=== PATIENT | male | born 1930 | race Caucasian/White ===

== ENCOUNTER → 2016-06-25 | Outpatient (CLI) | payer MEDICARE, BC ==
--- NOTE | 2016-06-25 09:21 | MRI ---
EXAM DESCRIPTION: Brain MRI. CLINICAL HISTORY: Acute onset of dizziness COMPARISON: None. TECHNIQUE: Multiplanar, multisequence MR images were acquired without IV contrast. FINDINGS: The midline structures demonstrate degenerative change about the dens. The remaining paranasal sinuses are clear. Chronic microvascular ischemic change with periventricular white matter disease noted. No intracranial mass effect, hydrocephalus, midline shift, hemorrhage, extra-axial fluid collection, abnormal vascular flow void, or restricted diffusion is seen. Calvarial signal is intact. Paranasal sinuses and the mastoid air cells appear clear. Orbits are within normal limits. IMPRESSION: Today's exam demonstrates cerebral involutional changes and moderate periventricular white matter disease. No acute stroke on today's exam. No old large territorial infarct. Electronically signed by: Devon Lanier MD 06/25/2016 09:19
--- NOTE | 2016-06-25 09:56 | US ---
EXAM DESCRIPTION: US CAROTID DOPPLER BILATERAL CLINICAL HISTORY: 86 y/o M, STENOSIS COMPARISON: None. FINDINGS: Peak systolic velocity right common carotid artery 100 centimeters/second. Peak systolic velocity right internal carotid artery 106 centimeters/second. Right ICA to CCA ratio 1.1. Antegrade flow in the right vertebral artery. Peak systolic velocity right external carotid artery 90 phi centimeters/second. Grayscale images show a small to moderate amount of predominately noncalcified plaque in the right carotid bifurcation. Peak systolic velocity left common carotid artery 122 centimeters/second. Peak systolic velocity left internal carotid artery 100 centimeters/second. Left ICA to CCA ratio 0.8. Antegrade flow in the left vertebral artery. Peak systolic velocity left external carotid artery 104 centimeters/second. Grayscale images show a small amount of plaque in the left carotid bifurcation. IMPRESSION: Mild (less than 50%) bilateral carotid artery stenosis. Electronically signed by: Arden Gambino DO 06/25/2016 09:54
== END ==
LOC: MRI 08:05
PROVIDERS: ATTEND Family Medicine
DX: R42 Dizziness and giddiness (principal); I65.21 Occlusion and stenosis of right carotid artery

== ENCOUNTER → 2016-09-08 | Outpatient (CLI) | payer MEDICARE, BC | END | disposition home or self-care (01) | LOC: GMAB 11:21 | PROVIDERS: ATTEND Family Medicine | DX: Z12.5 Encounter for screening for malignant neoplasm of prostate (principal); E03.9 Hypothyroidism, unspecified | CPT/HCPCS: 84439; 84443; 84481; G0103 ==

== ENCOUNTER 2016-11-16 21:46 | Emergency (ER) | payer MEDICARE, BC ==
[2016-11-16] MEDS ORDERED: LIDOCAINE 1% 10 ML VIAL INJ ONE (22:08)
[2016-11-16 23:08] VITALS: TEMP 98.2; O2SAT 99
--- NOTE | 2016-11-16 23:23 | ED.PDOC ---
History of Present Illness - General Chief Complaint: Laceration Stated Complaint: laceration Time Seen by Provider: 11/16/16 23:20 Source: patient Exam Limitations: no limitations - History of Present Illness Initial Comments: Patient presents with a laceration on his right fifth digit from a blade of [place] grass. He says it bled quite a bit. Now has it covered with a band aid. No other complaints. Last tetanus was 2-3 years ago. Timing/Duration: 1 hour Severity: mild Improving Factors: nothing Worsening Factors: nothing Associated Symptoms: denies symptoms Allergies/Adverse Reactions: Allergies NO KNOWN ALLERGY Allergy (Verified 10/14/13 16:34) Home Medications: Ambulatory Orders Aspirin [Aspirin EC Lo-Dose] 81 mg PO DAILY 10/19/13 B-Complex W/ C & Folic Acid [Folbee Plus] 1 tab PO BID 10/19/13 Tamsulosin [Flomax] 0.4 mg PO DAILY 10/19/13 Timolol Maleate (Ophth) [Timolol Maleate Ophthalmi] 0.25 % OP DAILY 10/19/13 Cialis 11/16/16 Review of Systems - Review of Systems Constitutional: States: no symptoms reported EENTM: States: no symptoms reported Respiratory: States: no symptoms reported Cardiology: States: no symptoms reported Gastrointestinal/Abdominal: States: no symptoms reported Genitourinary: States: no symptoms reported Musculoskeletal: States: no symptoms reported Skin: States: see HPI Neurological: States: no symptoms reported Endocrine: States: no symptoms reported Hematologic/Lymphatic: States: no symptoms reported Past Medical History (General) - Patient Medical History Hx Congestive Heart Failure: No Hx Hypertension: Yes Hx Diabetes: No - Vaccination History Hx Tetanus, Diphtheria Vaccination: Yes - 2016 Family Medical History - Family History Father Family History: Unknown Physical Exam - Physical Exam General Appearance: Alert Respiratory: lungs clear Cardiovascular/Chest: regular rate, rhythm Skin Exam: other - 2.5 cm transverse laceration on anterior surface of right 5th digit just proximal to the PIP joint. Small amount of bleeding. Progress - Progress Progress: 11/16/16 23:23 Laceration was irrigated and prepared in a sterile fashion. 4 cc of lidocaine without epinephrine was used to gain excellent local anesthesia. 3 interrupted sutures with 4-0 proline were used to approximate the wound edges. Dermabond used to support the repair. Area was clean, dry, and hemostatic. Patient tolerated procedure well. Departure - Departure Clinical Impression: Laceration Disposition: Discharge to Home or Self Care Condition: Good Departure Forms: ED Discharge - Pt. Copy, Patient Portal Self Enrollment Diet: resume usual diet Activity: increase activity as tolerated Referrals: Meliton Ambriz MD [Primary Care Provider] - 1-2 Weeks Home Medications: Ambulatory Orders Aspirin [Aspirin EC Lo-Dose] 81 mg PO DAILY 10/19/13 B-Complex W/ C & Folic Acid [Folbee Plus] 1 tab PO BID 10/19/13 Tamsulosin [Flomax] 0.4 mg PO DAILY 10/19/13 Timolol Maleate (Ophth) [Timolol Maleate Ophthalmi] 0.25 % OP DAILY 10/19/13 Cialis 11/16/16 Additional Instructions: Return for suture removal in 7-10 days.
[2016-11-16 23:39] VITALS: BP 138/72
== END 2016-11-16 23:38 | disposition home or self-care (01) ==
LOC: ER 21:46
DX: S61.216A Laceration without foreign body of right little finger without damage to nail, initial encounter (principal); I10 Essential (primary) hypertension; Z79.82 Long term (current) use of aspirin; Z79.899 Other long term (current) drug therapy; W45.8XXA Other foreign body or object entering through skin, initial encounter; Y92.9 Unspecified place or not applicable

== ENCOUNTER 2017-09-10 08:46 | Emergency (ER) | payer MEDICARE, BC ==
--- NOTE | 2017-09-10 09:18 | ED.PDOC ---
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 He says he has eating breakfast at the table and he passed out. His said that he vomited up some food at that time. She says he was unconsciousness for 2-4 minutes. He had one previous episodes over a year ago. He says he runs "low blood pressure " and that his heart rate is usually in the 60s. He denies any antihypertensives. He has an RX for Cialis but has not taken that in two months. Denies any numbness or weakness. No chest pain nor dyspnea. He denies any nausea or diaphoresis. He denies any cardiac history. No history of CVA. No light-headedness nor dizziness. No other complaints. Timing/Duration: 1 hour Severity: mild Improving Factors: nothing Worsening Factors: nothing Associated Symptoms: nausea/vomiting Allergies/Adverse Reactions: Allergies NO KNOWN ALLERGY Allergy (Verified 10/14/13 16:34) Home Medications: Ambulatory Orders Aspirin [Aspirin EC Lo-Dose] 81 mg PO DAILY 10/19/13 B-Complex W/ C & Folic Acid [Folbee Plus] 1 tab PO BID 10/19/13 Tamsulosin [Flomax] 0.4 mg PO DAILY 10/19/13 Timolol Maleate (Ophth) [Timolol Maleate Ophthalmi] 0.25 % OP DAILY 10/19/13 Glucosamine-Chondroitin [Osteo Bi-Flex Regular Str 250-200 mg] 1 tab PO DAILY Review of Systems - Review of Systems Constitutional: States: no symptoms reported EENTM: States: no symptoms reported Respiratory: States: no symptoms reported Cardiology: States: no symptoms reported Gastrointestinal/Abdominal: States: see HPI Genitourinary: States: no symptoms reported Musculoskeletal: States: no symptoms reported Skin: States: no symptoms reported Neurological: States: see HPI Endocrine: States: no symptoms reported Hematologic/Lymphatic: States: no symptoms reported Past Medical History (General) - Patient Medical History Hx Stroke: No Hx Congestive Heart Failure: No Hx Hypertension: Yes Hx Diabetes: No Surgical History: cholecystectomy - Vaccination History Hx Tetanus, Diphtheria Vaccination: Yes - 2016 Hx Influenza Vaccination: Yes Hx Pneumococcal Vaccination: Yes - Social History Hx Tobacco Use: Yes Family Medical History - Family History Father Family History: Unknown Physical Exam - Physical Exam General Appearance: Alert Eye Exam: bilateral normal Ears, Nose, Throat: normal ENT inspection Neck: non-tender, full range of motion, supple Respiratory: chest non-tender, lungs clear, normal breath sounds Cardiovascular/Chest: normal peripheral pulses, regular rate, rhythm, no edema Gastrointestinal/Abdominal: normal bowel sounds, non tender, soft Back Exam: normal inspection, no CVA tenderness Extremity: normal range of motion, non-tender, normal inspection 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 EKG read by me showed atrial fibrillation. The patient had a pulse/auscultation mismatch as well. I spoke with his primary physician, Dr. Tom Ambriz, as well as the tile grinder who was in town today, Dr. Lai, and both recommended transfer to [facility] for new onset atrial fibrillation. Departure - Departure Clinical Impression: Atrial fibrillation with slow ventricular response, Syncope Disposition: Transfer to Hospital Condition: Fair Departure Forms: ED Discharge - Pt. Copy, Patient Portal Self Enrollment Diet: other - NPO Activity: as per physical therapy Referrals: Meliton Ambriz MD [Primary Care Provider] - 1-2 Weeks Home Medications: Ambulatory Orders Aspirin [Aspirin EC Lo-Dose] 81 mg PO DAILY 10/19/13 B-Complex W/ C & Folic Acid [Folbee Plus] 1 tab PO BID 10/19/13 Tamsulosin [Flomax] 0.4 mg PO DAILY 10/19/13 Timolol Maleate (Ophth) [Timolol Maleate Ophthalmi] 0.25 % OP DAILY 10/19/13 Glucosamine-Chondroitin [Osteo Bi-Flex Regular Str 250-200 mg] 1 tab PO DAILY
[2017-09-10] MEDS ORDERED: SODIUM CHLORIDE 0.9% 1000ML 1,000 ML IVS ONE (09:59)
[2017-09-10 11:02] VITALS: O2SAT 96
[2017-09-10 12:25] VITALS: BP 128/73; TEMP 96.7
== END 2017-09-10 12:28 | disposition short-term general hospital (02) ==
LOC: ER 08:46
DX: I48.91 Unspecified atrial fibrillation (principal); R55 Syncope and collapse; I10 Essential (primary) hypertension; Z79.82 Long term (current) use of aspirin; Z87.891 Personal history of nicotine dependence
CPT/HCPCS: 36415; 80053; 83880; 84484; 85025; 85610; 85730; 93005; J7030

== ENCOUNTER → 2017-09-27 | Outpatient (CLI) | payer MEDICARE, BC ==
--- NOTE | 2017-09-27 16:46 | CT ---
EXAM DESCRIPTION: Chest w/o Contrast CLINICAL HISTORY: 87 years, Male, ABNORMAL FINDINGS OF LUNG FIELD COMPARISON: None TECHNIQUE: Thin-section noncontrast axial CT images are obtained according to our protocol. Reconstructed MPR images are created and reviewed as well. FINDINGS: Today's examination demonstrates findings of advanced centrilobular emphysema with upper lobe changes much more prominent than lower lobe. There is a spiculated area of parenchymal consolidation in the central portion of the right apex and the region of multiple blebs and bullae. This measures about 13 mm in size. Subpleural nodule posterior right lower lobe medially measures 9 mm in size. No effusion. No definitively pathologic lymphadenopathy. Heart size normal. Upper abdomen unremarkable. IMPRESSION: 1. Advanced centrilobular emphysema 2. 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 The location of this lesion surrounded by bullous changes makes it somewhat hazardous to perform percutaneous biopsy. The patient will almost certainly developmental pneumothorax. It may be useful to perform PET/CT and a further attempt to classify this as it may well be benign. 3. 9 mm nodule left lung base. 2017 Fleischner Society Recommendations for Multiple Solid Lung Nodules Follow-Up base on size (average of long- and short-axis diameters). Use most suspicious nodule for followup. Nodule Size <6 mm Low-Risk Patient: No routine follow-up Nodule Size <6 mm High-Risk Patient: Optional CT at 12 months Nodule Size 6-8 mm Low-Risk Patient: CT at 3-[address] at 18-24 months Nodule Size 6-8 mm High-Risk Patient: CT at 3-6 months then at 18-24 months Nodule Size (mm) >8 Low-Risk Patient: CT at 3-6 months, then consider CT at 18-24 months Nodule Size (mm) >8 High-Risk Patient: CT at 3-6 months, then at 18-24 months 1. This exam was performed according to our departmental dose-optimization program, which includes automated exposure control, adjustment of the mA and/or kV according to patient size and/or use of iterative reconstruction technique. Electronically signed by: Antonio Hassan MD 09/27/2017 4:45 PM CDT
== END ==
LOC: CT 11:00
PROVIDERS: ATTEND Family Medicine
DX: R91.8 Other nonspecific abnormal finding of lung field (principal); J43.9 Emphysema, unspecified; R91.1 Solitary pulmonary nodule

== ENCOUNTER → 2017-12-02 | Outpatient (CLI) | payer MEDICARE, BC ==
--- NOTE | 2017-12-02 11:04 | CT ---
EXAM DESCRIPTION: Abdomen/Pelvis w/wo Contrast CLINICAL HISTORY: 87 years Male, KIDNEY MASS COMPARISON: CT chest September 27, 2017. TECHNIQUE: Contiguous 3 mm axial images were obtained from the lung bases to the level of the proximal femora with and without the administration of intravenous contrast. Sagittal and coronal reconstructions were reviewed. Precontrast, arterial and delayed imaging was obtained. FINDINGS: EVALUATION OF THE URINARY SYSTEM: Both kidneys enhance and excrete symmetrically with no evidence of nephrolithiasis, hydronephrosis, hydroureter are perinephric stranding. Right kidney: A 2.7 cm exophytic low-density lesion in the interpolar region of right kidney is seen along the posterior aspect which measures 30 HU on precontrast, 37 HU on arterial and 37 HU on portal venous imaging. Given no significant contrast uptake or washout, this most consistent with a complicated cyst. Left kidney: A 8 mm low-density exophytic lesion in the lower pole of left kidney along the anterior aspect which measures -2 HU on precontrast, 10 Hu on arterial and 10 HU on delayed imaging most consistent with a simple cyst. No other suspicious masses identified THORAX: Visualized lower thorax again demonstrates moderate emphysematous changes of both lower lobes. Interval development of a 5 mm noncalcified based nodule in the left lower lobe, is too small to characterize. No pleural or pericardial effusion. LIVER: The liver appears grossly unremarkable with no intrahepatic biliary ductal dilatation or focal masses. GALLBLADDER: Surgically absent. PANCREAS: Appears normal with no cystic or solid lesions. SPLEEN: Normal ADRENAL GLANDS: The right adrenal gland appears grossly unremarkable. Mild thickening of the lateral limb of the left adrenal gland seen. STOMACH: The stomach is moderately distended with no gross abnormality. SMALL BOWEL: The small bowel loops demonstrate variable degrees of distention with no abnormal dilatation or other signs to suggest bowel obstruction. LARGE BOWEL: The colon is adequately distended with no gross abnormality. The appendix is well-visualized and appears normal. Scattered diverticula are noted throughout the colon with no evidence of diverticulitis. No evidence of free intraperitoneal air or fluid. RETROPERITONEUM: The abdominal aorta is nonaneurysmal with moderate atherosclerotic calcifications. The inferior vena cava is normal in size and caliber. No abnormally enlarged retroperitoneal lymph nodes are identified. URINARY BLADDER:The urinary bladder is adequately distended and demonstrates diffuse circumferential wall thickness. The prostate is moderately enlarged with central calcification. ADDITIONAL FINDINGS: None. BONES: Review of the bones demonstrate dextroscoliosis of the lumbar spine with severe multilevel degenerative changes, more predominant at L3-L4 and L4-L5 levels with intervertebral disc space narrowing and vacuum disc phenomenon. IMPRESSION: 1. No acute intra-abdominal process. 2. 2.7 cm hyperdense cyst in the interpolar region of right kidney along the posterior aspect, with no evidence of contrast uptake on arterial or delayed imaging, most consistent with a complicated cyst. 3. 8 mm cyst in the lower pole of left kidney along the anterior aspect most consistent with a simple cyst. 4. Mild thickening of the urinary bladder wall concerning for chronic cystitis. Clinical correlation is recommended. 5. Mild prostatomegaly. 6. Diverticulosis with no evidence of diverticulitis. 7. Interval development of a 5 mm noncalcified based nodule in the left lower lobe is too small to characterize. However this was not seen on prior chest CT from September 27, 2017. 2017 Fleischner Society Recommendations for Single Solid Lung Nodule Follow-Up based on size (average of long- and short-axis diameters) <6 mm Low-Risk Patient: No routine follow-up <6 mm High-Risk Patient: Optional CT at 12 months 6-8 mm Low-Risk Patient: CT at 6-[address] at 18-24 months 6-8 mm High-Risk Patient: CT at 6-[address] at 18-24 months >8 mm Low-Risk Patient: Consider CT, PET/CT or tissue sampling at 3 months >8 mm High-Risk Patient: Same as for low-risk patient This exam was performed according to our departmental dose-optimization program, which includes automated exposure control, adjustment of the mA and/or kV according to patient size and/or use of iterative reconstruction technique. Electronically signed by: Kushal Blum MD 12/02/2017 11:02 AM CDT
== END ==
LOC: CT 08:30
PROVIDERS: ATTEND Family Medicine
DX: N28.89 Other specified disorders of kidney and ureter (principal); N28.1 Cyst of kidney, acquired; R91.1 Solitary pulmonary nodule

== ENCOUNTER → 2018-11-25 | Outpatient (CLI) | payer MEDICARE, BC ==
--- NOTE | 2018-11-25 12:19 | CT ---
PROVIDED CLINICAL HISTORY/REASON FOR EXAM: Lung nodules STUDY TYPE/TECHNIQUE: CT CHEST WITHOUT IV CONTRAST This exam was performed according to our departmental dose-optimization program, which includes automated exposure control, adjustment of the mA and/or kV according to patient size and/or use of iterative reconstruction technique. COMPARISON: 09/27/2017 FINDINGS: Thyroid gland is unremarkable. No axillary adenopathy. Trace pericardial fluid. Cholecystectomy. Otherwise the visualized upper abdomen is unremarkable. No mediastinal adenopathy. Diffuse atherosclerotic plaque in the thoracic aorta. No pneumothorax. No pleural effusion. Stable irregular 13 mm right upper lobe luminary nodule series 4 image 36. Marked bullous emphysematous changes. Stable right middle lobe scarring. The previously identified tree-in-bud nodules in the left lower lobe are less conspicuous likely resolving infection/inflammation. No new pulmonary nodule. No acute or suspicious osseous abnormality. Scattered degenerative changes present. IMPRESSION: 1. Similar irregular right upper lobe pulmonary nodule measuring 13 mm. PET/CT is recommended. 2. Previously identified left lower lobe tree-in-bud nodular is less conspicuous, compatible with a benign resolving infection or inflammation. Electronically signed by: Danis Roche MD 11/25/2018 12:17 PM CDT
== END ==
LOC: CT 10:30
PROVIDERS: ATTEND Internal Medicine
DX: J98.4 Other disorders of lung (principal); J44.9 Chronic obstructive pulmonary disease, unspecified; R91.1 Solitary pulmonary nodule

== ENCOUNTER → 2018-12-05 | Outpatient (CLI) | payer MEDICARE, BC | LOC: GMAE 10:24 | PROVIDERS: ATTEND Family Medicine | DX: Z79.899 Other long term (current) drug therapy (principal) ==

== ENCOUNTER → 2018-12-13 | Outpatient (CLI) | payer MEDICARE, BC | LOC: GMAE 14:21 | PROVIDERS: ATTEND Family Medicine | DX: R94.6 Abnormal results of thyroid function studies (principal) ==

== ENCOUNTER → 2019-03-09 | Outpatient (CLI) | payer MEDICARE, BC | LOC: GMAJS 14:26 | PROVIDERS: ATTEND Physician Assistant | DX: R10.84 Generalized abdominal pain (principal) ==

== ENCOUNTER → 2019-06-19 | Outpatient (CLI) | payer MEDICARE, BC | LOC: GMAE 10:23 | PROVIDERS: ATTEND Family Medicine | DX: E03.9 Hypothyroidism, unspecified (principal) ==

== ENCOUNTER → 2019-12-21 | Outpatient (CLI) | payer MEDICARE, BC | LOC: GMAE 10:12 | PROVIDERS: ATTEND Family Medicine | DX: Z12.5 Encounter for screening for malignant neoplasm of prostate (principal); E03.9 Hypothyroidism, unspecified; Z79.899 Other long term (current) drug therapy | CPT/HCPCS: 84439; 84443; 84481; G0103 ==